=== PATIENT | female | born 1930 | race Asian ===

== ENCOUNTER 2018-07-28 13:53 | Emergency (ER) | payer OTHER ==
[~2018-07-28] VITALS: Ht 152.4 cm; Wt 68.2 kg
[~2018-07-28 13:53] MED LIST: ADV100 IH; ASPI-556 PO; CLOP75TA3 PO; DIPH25TA20 PO; FERR-89 PO; FURO10SO PO; GABA-529 PO; GLYB5TAB8 PO; KLORCON PO; LEVO500T2 PO; MONT10TA21 PO; NEBI5 PO; PRED-441 PO; ROSU10TA22 PO
[2018-07-28] MEDS ORDERED: SITA50 PO (14:13)
[2018-07-28] MEDS ORDERED: AMLO-511 PO (14:13)
[2018-07-28] MEDS ORDERED: OLME40TA8 PO (14:13)
[2018-07-28] MEDS ORDERED: GLIP5 PO (14:13)
[2018-07-28] MEDS ORDERED: FURO20 PO (14:13)
[2018-07-28 16:09] LABS: BASOPHILS % (AUTO) 0.5 % (0.0-2.0); EOSINOPHILS % (AUTO) 5.6 % (1.0-6.0); HEMATOCRIT 22.5 % (36-46); HEMOGLOBIN 7.4 g/dL (12.0-16.0); LYMPHOCYTES # (AUTO) 1.2 K/uL (1.0-4.8); LYMPHOCYTES % (AUTO) 13.1 % (22.0-44.0); MEAN CORPUSCULAR HEMOGLOBIN 28.8 pg (26.0-34.0); MEAN CORPUSCULAR VOLUME 87 fL (80-100); MONOCYTES # (AUTO) 0.6 K/uL (0.1-1.0); MONOCYTES % (AUTO) 6.8 % (2.0-9.0); NEUTROPHILS # (AUTO) 6.8 K/uL (1.8-7.7); PLATELET COUNT (AUTO) 325 K/uL (150-450); RED BLOOD CELL COUNT(AUTO) 2.58 MIL/uL (4.00-5.20); RED CELL DISTRIBUTION WIDTH 18.8 % (11.5-14.5)
[2018-07-28 17:31] LABS: CALCIUM, TOTAL 9.2 mg/dL (8.8-10.5); CREATININE 1.53 mg/dL (0.60-1.30); POTASSIUM 3.8 mmol/L (3.5-5.1)
[2018-07-28 17:32] LABS: INR 0.9 (0.9-1.1); PROTHROMBIN TIME 9.8 SEC (9.4-11.6)
[2018-07-28 17:36] LABS: BILIRUBIN,TOTAL 0.3 mg/dL (0.1-1.0); TOTAL PROTEIN, SERUM 7.5 g/dL (6.4-8.2)
[2018-07-28 21:37] LABS: APPEARANCE,URINE CLEAR (CLEAR); BILIRUBIN,URINE NEGATIVE (NEGATIVE); GLUCOSE, URINE (UA) NEGATIVE (NEGATIVE); KETONES,URINE NEGATIVE (NEGATIVE); LEUKOCYTE ESTERASE ,URINE TRACE (NEGATIVE); NITRATE,URINE NEGATIVE (NEGATIVE); OCCULT BLOOD,URINE SMALL (NEGATIVE); PROTEIN,URINE SEE CONFIRM (NEGATIVE); UROBILINOGEN,URINE 0.2 mg/dL (<=1.0)
[2018-07-28 21:46] LABS: RBC,URINE 0-2 /HPF (0-2); SULFOSALICYLIC ACID,URINE 2+ (Negative)
[2018-07-28 21:47] LABS: BACTERIA,URINE Many /HPF (None Seen); SQUAMOUS EPITHELIAL CELL,UR Rare /LPF (None Seen); WBC,URINE 0-2 /HPF (0-5)
[2018-07-28 22:45] VITALS: BP 135/72
[2018-07-28] MEDS ORDERED: INSULIN LISPRO 100 UNITS/ML SQ PRN (23:00)
[2018-07-28] MEDS ORDERED: ONDANSETRON HCL 4 MG/2 ML VIAL IVP PRN (23:00)
[2018-07-28] MEDS ORDERED: HYDROCODONE/ACETAMINOPHEN 5-325 MG TABLET PO PRN (23:00)
[2018-07-28] MEDS ORDERED: ACETAMINOPHEN 325 MG TABLET PO PRN (23:00)
[2018-07-28] MEDS ORDERED: BISACODYL 10 MG RECTAL RECTAL SUPPOSITORY PR PRN (23:00)
[2018-07-28] MEDS ORDERED: MORPHINE SULFATE 2 MG/ML SYRINGE IVP PRN (23:00)
[2018-07-28] MEDS ORDERED: PANTOPRAZOLE SODIUM 80 MG in SODIUM CHLORIDE 0.9% 100 ML IV SCH (23:00)
[2018-07-28] MEDS ORDERED: DEXTROSE 50%-WATER 25 GM/50 ML SYRINGE IVP PRN (23:00)
[2018-07-28] MEDS ORDERED: MAGNESIUM HYDROXIDE SUSPENSION 30 ML UDCUP PO PRN (23:00)
[2018-07-28] MEDS ORDERED: ZOLPIDEM TARTRATE 5 MG TABLET PO PRN (23:00)
[2018-07-28] MEDS ORDERED: SODIUM CHLORIDE 0.9% 1,000 ML IV ONE (23:15)
[2018-07-29] MEDS ORDERED: GlipiZIDE 5 MG TABLET PO SCH (07:30)
[2018-07-29] MEDS ORDERED: FERROUS SULFATE 325 MG EC TABLET PO SCH (09:00)
[2018-07-29] MEDS ORDERED: MONTELUKAST SODIUM 10 MG TABLET PO SCH (09:00)
[2018-07-29] MEDS ORDERED: FUROSEMIDE 20 MG TABLET PO SCH (09:00)
[2018-07-29] MEDS ORDERED: AmLODIPine BESYLATE 5 MG TABLET PO SCH (09:00)
[2018-07-29] MEDS ORDERED: DOCUSATE SODIUM 100 MG CAPSULE PO SCH (09:00)
[2018-07-29] MEDS ORDERED: GABAPENTIN 100 MG CAPSULE PO SCH (09:00)
[2018-07-29] MEDS ORDERED: PANTOPRAZOLE SODIUM 40 MG DR TABLET PO SCH (09:00)
[2018-07-29] MEDS ORDERED: OLMESARTAN MEDOXOMIL 40 MG TABLET PO SCH (09:00)
[2018-07-29] MEDS ORDERED: ROSUVASTATIN CALCIUM 10 MG TABLET PO SCH (21:00)
== END 2018-07-28 23:00 | disposition left against medical advice (07) ==
LOC: EMS 13:58 → 5S 20:53 → UNDOADMIN 20:53 → EMS 23:00
DX: D64.9 Anemia, unspecified (principal); I48.91 Unspecified atrial fibrillation; K92.2 Gastrointestinal hemorrhage, unspecified; J45.909 Unspecified asthma, uncomplicated; E11.9 Type 2 diabetes mellitus without complications; E78.00 Pure hypercholesterolemia, unspecified; I10 Essential (primary) hypertension; Z85.3 Personal history of malignant neoplasm of breast; Z79.899 Other long term (current) drug therapy; Z79.82 Long term (current) use of aspirin
CPT/HCPCS: 74176; 82271; 86850; 86900; 86901; 87086; 93005; C9113; G0378; J7050